=== PATIENT | female | born 1995 | race Caucasian/White ===

== ENCOUNTER 2023-01-29 06:00 | Inpatient (IN) | payer BC ==
[2023-01-29] MEDS ORDERED: Promethazine HCl 25 MG/ML VIAL IM PRN ×2 (07:08→13:49)
[2023-01-29] MEDS ORDERED: fentaNYL 50 mcg/mL 1 mL Vial SLOW IVP PRN (07:08)
[2023-01-29] MEDS ORDERED: Lidocaine 1% (PF) 30 ML VIAL SC PRN (07:08)
[2023-01-29] MEDS ORDERED: Lactated Ringer's 1,000 ML IV SCH (07:08)
[2023-01-29] MEDS ORDERED: NS w/ Oxytocin 30 units 500 ML IV SCH ×3 (07:08)
[2023-01-29] MEDS ORDERED: Ibuprofen 800 MG TAB PO PRN (07:08)
[2023-01-29] MEDS ORDERED: Ondansetron PF 4 MG/2 ML Vial IVP PRN ×3 (07:08→18:43)
[2023-01-29] MEDS ORDERED: hydrALAZINE 20 MG/ML VIAL SLOW IVP PRN ×2 (07:08→18:43)
[2023-01-29] MEDS ORDERED: HYDROcodone/Acetaminophen 5/325 mg Tablet PO PRN ×4 (07:08→18:43)
[2023-01-29 07:30] VITALS: BMI 28.6
[2023-01-29 07:39] LABS: Hemoglobin 12.3 g/dL (12.0-15.5); Mean Corpuscular HGB CONC 34.2 g/dL (32.0-36.0); Mean Corpuscular Hemoglobin 31.1 pg (27.0-33.0); Mean Corpuscular Volume 90.9 fl (81.6-98.3); Mean Platelet Volume 12.6 fl (7.4-10.4); Platelet Count 126 10x3/uL (150-450); RBC Distribution Width 12.6 % (11.5-14.5); Red Blood Cell (RBC) Count 3.96 10x6/uL (3.90-5.03); White Blood Cell (WBC) Count 7.4 10x3/uL (3.5-10.5)
[2023-01-29 08:11] LABS: HBSAg Index 0.21 S/CO (0-0.99); Hep B Surf Ag - L&D Non-Reactive S/CO (NonReactive)
[2023-01-29] MEDS ORDERED: fentaNYL/Ropivacaine Epidural 100 ML ONE (08:26)
[2023-01-29] MEDS ORDERED: Moisturizing Cream (Eucerin) 113 GM JAR TOP PRN (13:49)
[2023-01-29] MEDS ORDERED: Naloxone HCl 0.4 mg/ml Vial IVP PRN ×2 (13:49)
[2023-01-29] MEDS ORDERED: Acetaminophen 325 MG TAB PO PRN (13:49)
[2023-01-29] MEDS ORDERED: diphenhydrAMINE 50 MG/ML VIAL IVP PRN (13:49)
[2023-01-29] MEDS ORDERED: Lactated Ringer's 500 ML IV PRN (13:49)
[2023-01-29] MEDS ORDERED: ePHEDrine Sulfate 50 MG/10 ML VIAL SLOW IVP PRN (13:49)
[2023-01-29] MEDS ORDERED: fentaNYL 50 mcg/mL 1 mL Vial ONE (13:58)
[2023-01-29] MEDS ORDERED: fentaNYL 2 mcg/Ropivacaine 0.2% Epidural 100 ML CADD EPIDURAL SCH (14:00)
[2023-01-29] MEDS ORDERED: Communication Order-Pharmacy FS SCH (14:00)
[2023-01-29 14:02] LABS: Syphilis Antibody Nonreactive (Nonreactive); Syphilis Antibody Index 0.08 S/CO (<1.00 Non-Reactive)
[2023-01-29] MEDS ORDERED: Bupivacaine 0.25% HCL 30 ML VIAL ONE (17:00)
[2023-01-29] MEDS ORDERED: Bupivacaine HCl 0.5%/Epinephrine 1:200,000/PF 30 ml Vial ONE (17:00)
[2023-01-29] MEDS ORDERED: Boostrix 0.5 ML (Tdap) VIAL (>/=7 yrs of age) IM ONE (18:43)
[2023-01-29] MEDS ORDERED: Benzocaine-Menthol 82.5 ML CAN TOP PRN (18:43)
[2023-01-29] MEDS ORDERED: Bisacodyl 10 MG SUPP PR PRN (18:43)
[2023-01-29] MEDS ORDERED: Milk Of Magnesia 30 ML UDCUP PO PRN (18:43)
[2023-01-29] MEDS ORDERED: diphenhydrAMINE 25 MG CAP PO PRN (18:43)
[2023-01-29] MEDS ORDERED: Lanolin Ointment 7 GM TUBE TOP PRN (18:43)
[2023-01-29] MEDS ORDERED: Preparation H Ointment 28 GM TUBE PR PRN (18:43)
[2023-01-29] MEDS: Docusate 100 MG CAP PO SCH (22:22)
[2023-01-29] MEDS: Ibuprofen 800 MG TAB PO SCH (22:22)
[2023-01-30] MEDS: Ibuprofen 800 MG TAB PO SCH ×2 (06:15→14:21)
[2023-01-30] MEDS: Docusate 100 MG CAP PO SCH (07:45)
[2023-01-30] MEDS: Ferrous Sulfate 325 MG TAB PO SCH ×2 (08:37→18:40)
[2023-01-30] MEDS ORDERED: Prenatal Vitamin 1 TAB PO SCH (09:00)
[2023-01-30 17:04] VITALS: BP 126/89; TEMP 97.7
== END 2023-01-30 19:40 | disposition home or self-care (01) | DRG 807 ==
LOC: CSHLD 06:03 → CSHPP 21:25
PROVIDERS: ADMIT Obstetrics & Gynecology; ATTEND Obstetrics & Gynecology
PROC: 10E0XZZ Delivery of Products of Conception, External Approach (ICD-10-PCS; principal; 2023-01-29)
PROC: 10907ZC Drainage of Amniotic Fluid, Therapeutic from Products of Conception, Via Natural or Artificial Opening (ICD-10-PCS; 2023-01-29)
DX: O99.12 Other diseases of the blood and blood-forming organs and certain disorders involving the immune mechanism complicating childbirth (principal); Z37.0 Single live birth; D69.6 Thrombocytopenia, unspecified; Z3A.39 39 weeks gestation of pregnancy; Z79.52 Long term (current) use of systemic steroids
CPT/HCPCS: 36415; 51702; 85027; 86780; 86850; 86900; 86901; 87340; J2590; J3010; S0020

== ENCOUNTER 2025-05-17 06:02 | Inpatient (IN) | payer BC ==
[2025-05-17] MEDS ORDERED: Lidocaine 1% (PF) 30 ML VIAL SC PRN (06:14)
[2025-05-17] MEDS ORDERED: HYDROcodone/Acetaminophen 5/325 mg Tablet PO PRN ×3 (06:14→18:04)
[2025-05-17] MEDS ORDERED: Oxytocin 30 units/NS 500 ML 500 ML IV SCH ×2 (06:14→18:04)
[2025-05-17] MEDS ORDERED: Ondansetron PF 4 MG/2 ML Vial IVP PRN ×3 (06:14→18:04)
[2025-05-17] MEDS ORDERED: hydrALAZINE 20 MG/ML VIAL SLOW IVP PRN ×2 (06:14→18:04)
[2025-05-17] MEDS ORDERED: Ibuprofen 800 MG TAB PO PRN (06:14)
[2025-05-17 07:08] VITALS: BMI 27.8
[2025-05-17] MEDS: Oxytocin 30 units/NS 500 ML 500 ML IV SCH (07:16)
[2025-05-17 07:20] LABS: Hematocrit 37.7 % (34.9-44.5); Hemoglobin 13.4 g/dL (12.0-15.5); Mean Corpuscular Hemoglobin 31.6 pg (27.0-33.0); Mean Corpuscular Volume 88.9 fL (81.6-98.3); Platelet Count 132 10x3/uL (150-450); Red Blood Cell (RBC) Count 4.24 10x6/uL (3.90-5.03); White Blood Cell (WBC) Count 5.80 10x3/uL (3.5-10.5)
[2025-05-17 07:56] LABS: Hep B Surf Ag - L&D Non-Reactive S/CO (NonReactive)
[2025-05-17 07:58] LABS: Syphilis Antibody Index 0.15 S/CO (<1.00 Non-Reactive)
[2025-05-17] MEDS ORDERED: diphenhydrAMINE 50 MG/ML VIAL IVP PRN (09:19)
[2025-05-17] MEDS ORDERED: Communication Order-Pharmacy FS SCH (09:30)
[2025-05-17] MEDS ORDERED: Bupivacaine 0.25% HCL 30 ML VIAL ONE (11:00)
[2025-05-17] MEDS: Acetaminophen 325 MG TAB PO PRN (11:15)
[2025-05-17] MEDS: fentaNYL 2 mcg/Ropivacaine 0.2% Epidural 100 ML CADD EPIDURAL SCH (12:29)
[2025-05-17] MEDS: fentaNYL/Ropivacaine Epidural 100 ML ONE (13:55)
[2025-05-17] MEDS ORDERED: Milk Of Magnesia 30 ML UDCUP PO PRN (18:04)
[2025-05-17] MEDS ORDERED: Preparation H Ointment 28 GM TUBE PR PRN (18:04)
[2025-05-17] MEDS ORDERED: Bisacodyl 10 MG SUPP PR PRN (18:04)
[2025-05-17] MEDS ORDERED: diphenhydrAMINE 25 MG CAP PO PRN (18:04)
[2025-05-17] MEDS: Boostrix 0.5 ML (Tdap) VIAL (>/=7 yrs of age) IM ONE (18:14)
[2025-05-17] MEDS: Ibuprofen 800 MG TAB PO SCH (18:28)
[2025-05-17] MEDS: Benzocaine-Menthol 82.5 ML CAN TOP PRN (18:29)
[2025-05-17] MEDS: Ferrous Sulfate 325 MG TAB PO SCH (22:13)
[2025-05-18] MEDS: HYDROcodone/Acetaminophen 5/325 mg Tablet PO PRN (02:21)
[2025-05-18] MEDS: Ferrous Sulfate 325 MG TAB PO SCH (07:44)
[2025-05-18 11:43] VITALS: BP 120/73; TEMP 98.2
[2025-05-18] MEDS: Hydrocortisone/Pramoxine (Proctofoam HC) 10 GM BOX TOP SCH (13:36)
== END 2025-05-18 17:40 | disposition home or self-care (01) | DRG 807 ==
LOC: CSHLD 06:02 → CSHPP 17:54
PROVIDERS: ADMIT Obstetrics & Gynecology; ATTEND Obstetrics & Gynecology
PROC: 10E0XZZ Delivery of Products of Conception, External Approach (ICD-10-PCS; principal; 2025-05-17)
PROC: 10907ZC Drainage of Amniotic Fluid, Therapeutic from Products of Conception, Via Natural or Artificial Opening (ICD-10-PCS; 2025-05-17)
PROC: 0UQMXZZ Repair Vulva, External Approach (ICD-10-PCS; 2025-05-17)
DX: O69.1XX0 Labor and delivery complicated by cord around neck, with compression, not applicable or unspecified (principal); Z37.0 Single live birth; Z3A.39 39 weeks gestation of pregnancy
CPT/HCPCS: 51702; 85027; 86780; 86850; 86900; 86901; 87340; J0665; J2590; J7120